=== PATIENT | male | born 1975 | race American Indian/Alaskan Native ===

== ENCOUNTER 2020-03-13 14:30 | Emergency (ER) | payer SELFPAY ==
[2020-03-13 14:51] VITALS: BP 118/82
[2020-03-13] MEDS ORDERED: ACETAMINOPHEN W/CODEINE 300-30 MG TAB PO ONE (15:56)
[2020-03-13] MEDS ORDERED: LIDOCAINE (1%) 10 MG/1 ML VIAL 20 ML MDV INFILTRATI ONE (15:56)
[2020-03-13] MEDS ORDERED: BUPIVACAINE/PF (0.5%) 5 MG/1 ML 10 ML VIAL INFILTRATI ONE (15:56)
--- NOTE | 2020-03-13 17:20 | Emergency Department Report ---
- General Chief complaint: Extremity Injury, Upper Stated complaint: LT HAND FINGER SWOLLEN Time Seen by Provider: 03/13/20 15:08 Source: patient Mode of arrival: Ambulatory Limitations: No Limitations - History of Present Illness Initial comments: Patient is a 44-year-old male presents emergency room with complaints of left middle finger pain, swelling, redness that began 3 days ago. He denies any abrasions or lacerations. He denies getting bit by anything. He states that occasionally he does bite his fingernails. He denies any diarrhea, fever, chills, vomiting. He states that he had this once in the past a few years ago and did have to have a I&D performed. He denies any past medical history. No allergies to medications. - Related Data Previous Rx's Medication Instructions Recorded Last Taken Type HYDROcodone/APAP 5-325 [[place] 1 each PO Q6HR PRN #16 tablet 04/07/14 Unknown Rx 5-325 mg TAB] Sulfamethoxazole/Trimethoprim 1 each PO Q12H #20 tablet 04/07/14 Unknown Rx [Bactrim Ds] Acetaminophen/Codeine [Tylenol 1 tab PO Q6H PRN #10 tab 03/13/20 Unknown Rx /Codeine # 3 tab] cephALEXin [Keflex] 500 mg PO QID 7 Days #28 cap 03/13/20 Unknown Rx Allergies Allergy/AdvReac Type Severity Reaction Status Date / Time No Known Allergies Allergy Unverified 04/07/14 14:49 Abscess Boil HPI - HPI Chief Complaint: Extremity Injury, Upper Stated Complaint: LT HAND FINGER SWOLLEN Time Seen by Provider: 03/13/20 15:08 Home Medications: Previous Rx's Medication Instructions Recorded Last Taken Type HYDROcodone/APAP 5-325 [[place] 1 each PO Q6HR PRN #16 tablet 04/07/14 Unknown Rx 5-325 mg TAB] Sulfamethoxazole/Trimethoprim 1 each PO Q12H #20 tablet 04/07/14 Unknown Rx [Bactrim Ds] Acetaminophen/Codeine [Tylenol 1 tab PO Q6H PRN #10 tab 03/13/20 Unknown Rx /Codeine # 3 tab] cephALEXin [Keflex] 500 mg PO QID 7 Days #28 cap 03/13/20 Unknown Rx Allergies/Adverse Reactions: Allergies Allergy/AdvReac Type Severity Reaction Status Date / Time No Known Allergies Allergy Unverified 04/07/14 14:49 ED Review of Systems ROS: Stated complaint: LT HAND FINGER SWOLLEN Other details as noted in HPI Comment: All other systems reviewed and negative ED Past Medical Hx - Past Medical History Previous Medical History?: No - Surgical History Past Surgical History?: No - Social History Smoking Status: Never Smoker Substance Use Type: None - Medications Home Medications: Home Medications Medication Instructions Recorded Confirmed Last Taken Type HYDROcodone/APAP 5-325 [[place] 1 each PO Q6HR PRN #16 tablet 04/07/14 Unknown Rx 5-325 mg TAB] Sulfamethoxazole/Trimethoprim 1 each PO Q12H #20 tablet 04/07/14 Unknown Rx [Bactrim Ds] Acetaminophen/Codeine [Tylenol 1 tab PO Q6H PRN #10 tab 03/13/20 Unknown Rx /Codeine # 3 tab] cephALEXin [Keflex] 500 mg PO QID 7 Days #28 cap 03/13/20 Unknown Rx ED Physical Exam - General Limitations: No Limitations General appearance: alert, in no apparent distress - Head Head exam: Present: atraumatic, normocephalic - Eye Eye exam: Present: normal appearance - ENT ENT exam: Present: mucous membranes moist - Respiratory Respiratory exam: Absent: respiratory distress, accessory muscle use - Extremities Exam Extremities exam: Present: other (induration, ttp, erythema present surrounding the left middle finger nailbed, there is a small area of central fluctuance, no necrosis, no edema or erythema down the finger, FROM of the finger, neurovascularly intact) - Neurological Exam Neurological exam: Present: alert, oriented X3 - Psychiatric Psychiatric exam: Present: normal affect, normal mood - Skin Skin exam: Present: warm, dry ED Course Vital Signs 03/13/20 14:46 Temperature 98.5 F Pulse Rate 91 H Respiratory 18 Rate Blood Pressure 118/82 O2 Sat by Pulse 97 Oximetry - I & D Left Dorsal Finger Type of Procedure: Simple Site: left dorsal middle finger to the nailbed Blade Size: 11 I & D Procedure: betadine prep, sterile drapes applied, sterile dressing applied Progress: Skin prepped with Betadine, digital block performed with a total of 8 cc of anesthetic which was a 50-50 mixture of 1% lidocaine without epinephrine and 0.5% bupivacaine without epinephrine, aspirated to make sure not in vessel, local anesthesia achieved, Betadine prep again, sterile drapes applied, 2 incisions made with an 11 blade, each incision was 0.5 cm, small amount of purul ent drainage expressed, irrigated with saline, patient tolerated well, no complications, bleeding controlled, sterile dressing applied ED Medical Decision Making - Medical Decision Making Patient is a 44-year-old male presents emergency room with complaints of left middle finger pain, swelling, redness that began 3 days ago. He denies any sinai sions or lacerations. He denies getting bit by anything. He states that occasionally he does bite his fingernails. He denies any diarrhea, fever, chills, vomiting. He states that he had this once in the past a few years ago and did have to have a I&D performed. He denies any past medical history. No allergies to medications. VSS. on exam: induration, ttp, erythema present surrounding the left middle finger nailbed, there is a small area of central fluctuance, no necrosis, no edema or erythema down the finger, FROM of the finger, neurovascularly intact. Examination appears consistent with paronychia. No signs of septic joint, no signs of infection tracking down the finger. I&D performed via procedure note and small amount of purulent drainage expressed. Patient will be placed on Keflex and Tylenol with codeine. Advised patient to please take medication as prescribed. Do not drive or operate heavy machinery while taking pain medication. Please keep area clean, dry, covered. May wash with antibacterial soap and water twice a day and pat dry. No hot tub, no pool, no soaking in water. Showering is fine. Follow-up with a primary care doctor for reexamination. Return to emergency room for any new or worsening symptoms. Critical care attestation.: If time is entered above; I have spent that time in minutes in the direct care of this critically ill patient, excluding procedure time. ED Disposition Clinical Impression: Paronychia Disposition: DC-01 TO HOME OR SELFCARE Is pt being admited?: No Does the pt Need Aspirin: No Condition: Stable Instructions: Paronychia (ED) Additional Instructions: please take medication as prescribed. Do not drive or operate heavy machinery while taking pain medication. Please keep area clean, dry, covered. May wash with antibacterial soap and water twice a day and pat dry. No hot tub, no pool, no soaking in water. Showering is fine. Follow-up with a primary care doctor for reexamination. Return to emergency room for any new or worsening symptoms. Prescriptions: cephALEXin [Keflex] 500 mg PO QID 7 Days #28 cap Acetaminophen/Codeine [Tylenol /Codeine # 3 tab] 1 tab PO Q6H PRN #10 tab PRN Reason: Pain , Severe (7-10) Referrals: PRIMARY MD SU [Primary Care Provider] - 2-3 Days [facility] MD [Staff Physician] - 2-3 Days [facility] [Provider Group] - 2-3 Days [facility], [LAB/CONTRACT] - 2-3 Days Time of Disposition: 17:21 Print Language: TONGAN
== END 2020-03-13 17:55 | disposition home or self-care (01) ==
LOC: ED 14:30
DX: L03.012 Cellulitis of left finger (principal); Z79.899 Other long term (current) drug therapy
CPT/HCPCS: 99282